=== PATIENT | male | born 1980 | race Two or more races ===

== ENCOUNTER 2025-06-01 11:53 | Inpatient (IN) | payer OTHER ==
[~2025-06-01] VITALS: Ht 193 cm; Wt 99.8 kg
[2025-06-01] MEDS ORDERED: COZAAR25 MG PO (12:48)
[2025-06-01] MEDS ORDERED: MORPHINE SULFATE 2 MG/ML SYRINGE IV ONE (13:45)
[2025-06-01] MEDS ORDERED: FAMOtidine 10 MG/ML (4ML VIAL) IV PUSH ONE (13:45)
[2025-06-01] MEDS ORDERED: ASPIRIN 325 MG TABLET.EC PO ONE (15:45)
[2025-06-01 16:12] LABS: BASO % 0.5 % (0.1-1.2); EOS # 0.18 (0.04-0.54); EOS % 1.6 % (0.7-7.0); LYMPH # 3.13 (1.18-3.74); LYMPH % 27.7 % (19.3-53.1); MEAN PLATELET VOLUME 8.90 fl (9.4-12.4); MONO # 0.87 (0.24-0.82); MONO % 7.7 % (4.7-12.5); NEUT # 7.02 (1.56-6.13); NEUT % 62.1 % (34.0-71.1); RED CELL DISTRIBUTION WIDTH 12.3 % (11.6-14.4)
[2025-06-01 16:42] LABS: ALT/SGPT 56.0 U/L (12-78); AST/SGOT 30.0 U/L (15-37); BILIRUBIN TOTAL 0.62 mg/dL (0.3-1.2); BUN CREA RATIO 12.0 (7.0-25.0); CREATININE SERUM 0.84 mg/dL (0.70-1.30); GFR 98.81; GLOBULINA 3.8 G/DL (2.4-3.5); GLUCOSE FASTING 104.0 mg/dL (65-100); OSMOLALITY SERUM 279.0 MOSM/KG (275-295)
[2025-06-01] MEDS ORDERED: NITROGLYCERIN IN 5 % DEXTROSE 250 ML IV SCH ×2 (17:30→23:33)
[2025-06-01] MEDS ORDERED: ONDANSETRON HCL 4 MG in DEXTROSE 5 % IN WATER 50 ML IV PRN (20:00)
[2025-06-01] MEDS ORDERED: FAMOtidine 10 MG/ML (4ML VIAL) IV ONE (20:00)
[2025-06-01] MEDS ORDERED: NITROGLYCERIN 0.4 MG TAB.SUBL SL SCH (20:00)
[2025-06-01] MEDS ORDERED: MORPHINE SULFATE 4 MG/ML CARTRIDGE IV PRN (20:00)
[2025-06-01] MEDS ORDERED: 0.9 % SODIUM CHLORIDE 1,000 ML IV ONE (20:00)
[2025-06-01 22:31] LABS: COVID-19 AG NEGATIVE (NEGATIVE)
[2025-06-01 23:00] VITALS: BP 139/97; O2SAT 97
[2025-06-01] MEDS ORDERED: ASPIRIN 325 MG TABLET PO ONE (23:45)
[2025-06-01] MEDS ORDERED: CEFTRIAXONE SODIUM 1,000 MG VIAL IV ONE (23:45)
[2025-06-01] MEDS ORDERED: ATORVASTATIN CALCIUM 40 MG TABLET PO ONE (23:45)
[2025-06-01] MEDS ORDERED: TICAGRELOR 90 MG TABLET PO ONE (23:45)
[2025-06-01 23:51] LABS: INR 0.99
[2025-06-01 23:53] LABS: BILIRUBIN TOTAL 0.33 mg/dL (0.3-1.2); BILIRUBIN,CONJUGATED 0.11 mg/dL (0.0-0.2); D DIMER < 0.19 MG/L
[2025-06-02 05:00] VITALS: BP 113/61; O2SAT 98
[2025-06-02 06:22] VITALS: BP 113/61
[2025-06-02 08:57] VITALS: BP 136/88; O2SAT 97
[2025-06-02] MEDS ORDERED: LOSARTAN POTASSIUM 25 MG TABLET PO SCH (09:00)
[2025-06-02 16:48] VITALS: O2SAT 97
[2025-06-02] MEDS ORDERED: FAMOTIDINE/PF 20 MG/2 ML VIAL IV SCH ×2 (17:00→21:00)
[2025-06-02 18:23] VITALS: BP 129/81
[2025-06-02 20:39] VITALS: O2SAT 97
[2025-06-03 04:18] VITALS: BP 136/78; O2SAT 98
[2025-06-03 08:15] VITALS: BP 118/75; O2SAT 96
[2025-06-03 08:17] VITALS: BP 118/75; O2SAT 96
[2025-06-03] MEDS ORDERED: NITROGLYCERIN IN 5 % DEXTROSE 250 ML IV SCH (09:00)
== END 2025-06-03 12:33 | disposition home or self-care (01) | DRG 282 ==
LOC: ER 11:54 → MEDI 23:53
PROVIDERS: General Practice; ADMIT Internal Medicine; ATTEND Internal Medicine
PROC: BW40ZZZ Ultrasonography of Abdomen (ICD-10-PCS; principal; 2025-06-01)
PROC: BB24YZZ Computerized Tomography (CT Scan) of Bilateral Lungs using Other Contrast (ICD-10-PCS; 2025-06-01)
PROC: B246ZZZ Ultrasonography of Right and Left Heart (ICD-10-PCS; 2025-06-01)
PROC: 4A12X4Z Monitoring of Cardiac Electrical Activity, External Approach (ICD-10-PCS; 2025-06-02)
DX: I21.4 Non-ST elevation (NSTEMI) myocardial infarction (principal); K21.9 Gastro-esophageal reflux disease without esophagitis; I10 Essential (primary) hypertension; R07.89 Other chest pain